=== PATIENT | female | born 1960 | race African-American/Black ===

== ENCOUNTER 2018-06-17 00:53 | Inpatient (IN) ==
[2018-06-17] MEDS ORDERED: Famotidine PF Inj 20 MG/2 ML Vial IV.PUSH ONE (01:31)
[2018-06-17] MEDS ORDERED: Ketorolac Inj 30 MG/ML (IVP) Vial IV.PUSH ONE (01:31)
[2018-06-17 01:42] LABS: Baso # (Auto) 0.1 th/mm3 (0.0-0.2); Baso % (Auto) 0.6 % (0.0-2.0); Eos # (Auto) 0.2 th/mm3 (0.0-0.4); Eos % (Auto) 2.6 % (0.0-4.0); Hemoglobin 11.6 gm/dL (11.6-15.3); Lymph # (Auto) 2.5 th/mm3 (1.0-4.8); Lymph % (Auto) 28.8 % (9.0-44.0); Mean Corpuscular HGB Conc 33.2 % (32.0-36.0); Mean Corpuscular Hemoglobin 27.1 pg (27.0-34.0); Mean Corpuscular Volume 81.8 fL (80.0-100.0); Mean Platelet Volume 9.1 fL (7.0-11.0); Mono # (Auto) 0.5 th/mm3 (0.0-0.9); Neut # (Auto) 5.4 th/mm3 (1.8-7.7); Platelet Count 255 th/mm3 (150-450); Red Blood Count 4.28 mil/mm3 (4.00-5.30); Red Cell Distribution Width 14.4 % (11.6-17.2); White Blood Count 8.7 th/mm3 (4.0-11.0)
--- NOTE | 2018-06-17 01:52 | ED ---
HPI General Chief Complaint: Asthma Stated Complaint: Difficulty breathing x 3 hrs,sharp rt side pain Time Seen by Provider: 06/17/18 01:09 History of Present Illness HPI narrative: Patient is a very obese -[place] woman who is coming in complaining of sudden onset of right sided flank to the right sided lateral abdomen pain radiating to the groin he has had dysuria hesitancy. She also feels that the pain is exacerbating her asthma. She does not appear to be in any respiratory distress she is mainly complaining of pain in her abdomen radiating towards her groin from the right flank. pt reports pain is severe and radiating , pt is visiting from [facility] and has no local MD . pt has associated nausea but no vomit , No obvious signs of Resp distress no audible wheeze and auscultation LUNG are clear Related Data Home Medications Medication Instructions Recorded Confirmed No Known Home Medications 06/17/18 06/17/18 Previous Rx's Medication Instructions Recorded cefuroxime axetil 500 mg PO Q12H #10 tab 06/18/18 ipratropium-albuterol [Combivent 2 puff INHALATION Q6H #1 inhaler 06/18/18 Respimat] Allergies Allergy/AdvReac Type Severity Reaction Status Date / Time shellfish derived Allergy Edema Verified 06/17/18 03:22 Review of Systems ROS: all other systems reviewed are negative Gastrointestinal Reports abdominal pain and Reports nausea PMFSH Medical History Medical History History of asthma (Acute) Kidney stones (Acute) Muscular pain (Acute) Peripheral edema (Acute) Sciatica (Acute) Umbilical hernia (Acute) Surgical History Surgical History History of hysterectomy (Acute) History of tubal ligation (Acute) Family History Family History Mother History of rheumatoid arthritis Father History of colon cancer Sister History of colon cancer Social History Social History Substance History: No History of Abuse Second Hand Smoke Exposure: No Smoking Status: Never smoker How Often Do You Have a Drink Containing Alcohol: Never Recent Travel in [place] within the Last 8 Weeks: No Recent Out of Country Travel within the Last 8 Weeks: No Exam Narrative Exam Narrative: GENERAL: In no apparent distress no respiratory distress holding her right side SKIN: Warm and dry. HEAD: Atraumatic. Normocephalic. EYES: Pupils equal and round. No scleral icterus. No injection or drainage. ENT: No nasal bleeding or discharge. Mucous membranes pink and moist. NECK: Trachea midline. No JVD. CARDIOVASCULAR: Regular rate and rhythm. RESPIRATORY: No accessory muscle use. Clear to auscultation. Breath sounds equal bilaterally. GASTROINTESTINAL: Abdomen soft, positive tenderness right lateral abdomen patient is obese, . Hepatic and splenic margins not palpable. MUSCULOSKELETAL: Extremities without clubbing, cyanosis, or edema. No obvious deformities. Back exam right CVA tenderness positive with radiation to the right lateral aspect of her large abdomen she is obese NEUROLOGICAL: Awake and alert. No obvious cranial nerve deficits. Motor grossly within normal limits. Five out of 5 muscle strength in the arms and legs. Normal speech. PSYCHIATRIC: Appropriate mood and affect; insight and judgment normal. Course Initial Documented Vital Signs Temperature 98.0 F 06/17/18 00:59 Pulse Rate 78 06/17/18 00:59 Respiratory Rate 20 06/17/18 00:59 Blood Pressure 143/70 H 06/17/18 00:59 Pulse Oximetry 95 06/17/18 00:59 Last Documented Vital Signs Temperature 99.1 F 06/18/18 08:00 Pulse Rate 105 H 06/18/18 08:00 Respiratory Rate 15 06/18/18 08:00 Blood Pressure 131/85 06/18/18 08:00 Pulse Oximetry 94 L 06/18/18 08:00 Medical Decision Making MDM Narrative Medical decision making narrative: CT abdomen urine UA Toradol IV re-eval patient's CAT scan shows a 5 mm stone in her right mid ureter with hydronephrosis hydroureter. She also has multiple large calcified gallstones. Patient's lipase returns at 2000. Patient is given Toradol and Pepcid from arrival and she feels much better will admit her for a urology consult as well as a GI consult possibly ERCP will be needed to remove the gallstones that may be blocking her pancreatic duct however at this time she is pain-free and feels much improved admit to medicine Medical Screen Exam Complete: Yes Emergency Medical Condition: Yes Differential Diagnosis Differential Diagnosis: Renal colic with kidney stone versus pyelonephritis due to a UTI versus pancreatitis vs SBO hydronephrosis obstructing uropathology Lab Data Result diagrams: 06/18/18 05:45 06/18/18 13:54 Lab Results 09/06/18 09/06/18 09/06/18 Range/Units 01:32 02:10 05:00 CBC w Diff Auto diff final WBC 8.7 (4.0-11.0) th/mm3 RBC 4.28 (4.00-5.30) mil/mm3 Hgb 11.6 (11.6-15.3) gm/dL Hct 35.0 (35.0-46.0) % MCV 81.8 (80.0-100.0) fL MCH 27.1 (27.0-34.0) pg MCHC 33.2 (32.0-36.0) % RDW 14.4 (11.6-17.2) % Plt Count 255 (150-450) th/mm3 MPV 9.1 (7.0-11.0) fL Neut % (Auto) 62.0 (16.0-70.0) % Lymph % (Auto) 28.8 (9.0-44.0) % [place] % (Auto) 6.0 (0.0-8.0) % Eos % (Auto) 2.6 (0.0-4.0) % Baso % (Auto) 0.6 (0.0-2.0) % Neut # (Auto) 5.4 (1.8-7.7) th/mm3 Lymph # (Auto) 2.5 (1.0-4.8) th/mm3 [place] # (Auto) 0.5 (0.0-0.9) th/mm3 Eos # (Auto) 0.2 (0.0-0.4) th/mm3 Baso # (Auto) 0.1 (0.0-0.2) th/mm3 WBC Differential . Differential Comment . Sodium 140 (136-145) meq/L Potassium 3.9 (3.5-5.1) meq/L Chloride 107 (98-107) meq/L Carbon Dioxide 24.4 (21.0-32.0) meq/L Anion Gap 9 (5-15) meq/L BUN 18 (7-18) mg/dL Creatinine 1.10 H (0.50-1.00) mg/dL Estimated GFR 51 L (>89) mL/min Random Glucose 124 H (74-106) mg/dL Calcium 8.8 (8.5-10.1) mg/dL Total Bilirubin 0.1 L (0.2-1.0) mg/dL AST 20 (15-37) U/L ALT 22 (10-53) U/L Alkaline Phosphatase 68 (45-117) U/L Total Protein 8.2 (6.4-8.2) g/dL Albumin 3.2 L (3.4-5.0) g/dL Triglycerides (42-150) mg/dL Cholesterol (120-200) mg/dL LDL Cholesterol, Calc (0-99) mg/dL HDL Cholesterol (40.0-60.0) mg/dL Cholesterol/HDL Ratio Ratio Lipase 2001 H (73-393) U/L Urine Color Yellow (Yellw/Straw) Urine Clarity Turbid H (Clear) Urine pH 7.0 (5.0-8.5) Ur Specific [place] Less/equal 1.005 (1.002-1.035) Urine Protein Trace (Neg-Trace) mg/dL Urine Glucose (UA) Negative (Negative) mg/dL Urine Ketones Negative (Negative) mg/dL Urine Occult Blood Moderate H (Negative) Urine Nitrate Positive H (Negative) Urine Bilirubin Negative (Negative) Urine Urobilinogen 0.2 (Less than 2) mg/dL Ur Leukocyte Esterase Large H (Negative) Urine RBC 15-50 H (0-3) /hpf Urine WBC Innumerable H (0-5) /hpf Urine WBC Clumps Many H (None) Ur Squamous Epith Cells 6-10 H (0-5) /hpf Urine Bacteria Many H (None) /hpf Urine Mucus Moderate H (Occasional) /lpf Micro UA Comment Culture indicated Ur Microscopic Review Microscopic reviewed 06/17/18 06/18/18 06/18/18 Range/Units 08:54 05:45 05:45 CBC w Diff Auto diff final WBC 11.2 H (4.0-11.0) th/mm3 RBC 4.04 (4.00-5.30) mil/mm3 Hgb 10.9 L (11.6-15.3) gm/dL Hct 33.8 L (35.0-46.0) % MCV 83.7 (80.0-100.0) fL MCH 26.9 L (27.0-34.0) pg MCHC 32.2 (32.0-36.0) % RDW 14.1 (11.6-17.2) % Plt Count 212 (150-450) th/mm3 MPV 8.6 (7.0-11.0) fL Neut % (Auto) 84.5 H (16.0-70.0) % Lymph % (Auto) 10.4 (9.0-44.0) % [place] % (Auto) 4.2 (0.0-8.0) % Eos % (Auto) 0.7 (0.0-4.0) % Baso % (Auto) 0.2 (0.0-2.0) % Neut # (Auto) 9.4 H (1.8-7.7) th/mm3 Lymph # (Auto) 1.2 (1.0-4.8) th/mm3 [place] # (Auto) 0.5 (0.0-0.9) th/mm3 Eos # (Auto) 0.1 (0.0-0.4) th/mm3 Baso # (Auto) 0.0 (0.0-0.2) th/mm3 WBC Differential . Differential Comment . Sodium 143 (136-145) meq/L Potassium 3.8 (3.5-5.1) meq/L Chloride 109 H (98-107) meq/L Carbon Dioxide 25.4 (21.0-32.0) meq/L Anion Gap 9 (5-15) meq/L BUN 17 (7-18) mg/dL Creatinine 1.90 H (0.50-1.00) mg/dL Estimated GFR 33 L (>89) mL/min Random Glucose 101 (74-106) mg/dL Calcium 7.9 L D (8.5-10.1) mg/dL Total Bilirubin 1.1 H (0.2-1.0) mg/dL AST 30 (15-37) U/L ALT 27 (10-53) U/L Alkaline Phosphatase 67 (45-117) U/L Total Protein 7.3 D (6.4-8.2) g/dL Albumin 2.7 L (3.4-5.0) g/dL Triglycerides 83 (42-150) mg/dL Cholesterol (120-200) mg/dL LDL Cholesterol, Calc (0-99) mg/dL HDL Cholesterol (40.0-60.0) mg/dL Cholesterol/HDL Ratio Ratio Lipase 109 (73-393) U/L Urine Color (Yellw/Straw) Urine Clarity (Clear) Urine pH (5.0-8.5) Ur Specific [place] (1.002-1.035) Urine Protein (Neg-Trace) mg/dL Urine Glucose (UA) (Negative) mg/dL Urine Ketones (Negative) mg/dL Urine Occult Blood (Negative) Urine Nitrate (Negative) Urine Bilirubin (Negative) Urine Urobilinogen (Less than 2) mg/dL Ur Leukocyte Esterase (Negative) Urine RBC (0-3) /hpf Urine WBC (0-5) /hpf Urine WBC Clumps (None) Ur Squamous Epith Cells (0-5) /hpf Urine Bacteria (None) /hpf Urine Mucus (Occasional) /lpf Micro UA Comment Ur Microscopic Review 06/18/18 06/18/18 Range/Units 05:45 13:54 CBC w Diff WBC (4.0-11.0) th/mm3 RBC (4.00-5.30) mil/mm3 Hgb (11.6-15.3) gm/dL Hct (35.0-46.0) % MCV (80.0-100.0) fL MCH (27.0-34.0) pg MCHC (32.0-36.0) % RDW (11.6-17.2) % Plt Count (150-450) th/mm3 MPV (7.0-11.0) fL Neut % (Auto) (16.0-70.0) % Lymph % (Auto) (9.0-44.0) % [place] % (Auto) (0.0-8.0) % Eos % (Auto) (0.0-4.0) % Baso % (Auto) (0.0-2.0) % Neut # (Auto) (1.8-7.7) th/mm3 Lymph # (Auto) (1.0-4.8) th/mm3 [place] # (Auto) (0.0-0.9) th/mm3 Eos # (Auto) (0.0-0.4) th/mm3 Baso # (Auto) (0.0-0.2) th/mm3 WBC Differential Differential Comment Sodium 144 (136-145) meq/L Potassium 3.4 L (3.5-5.1) meq/L Chloride 111 H (98-107) meq/L Carbon Dioxide 25.5 (21.0-32.0) meq/L Anion Gap 8 (5-15) meq/L BUN 12 (7-18) mg/dL Creatinine 1.30 H (0.50-1.00) mg/dL Estimated GFR 51 L (>89) mL/min Random Glucose 92 (74-106) mg/dL Calcium 7.9 L (8.5-10.1) mg/dL Total Bilirubin 0.7 (0.2-1.0) mg/dL AST 30 (15-37) U/L ALT 28 (10-53) U/L Alkaline Phosphatase 66 (45-117) U/L Total Protein 6.6 D (6.4-8.2) g/dL Albumin 2.4 L (3.4-5.0) g/dL Triglycerides 78 (42-150) mg/dL Cholesterol 182 (120-200) mg/dL LDL Cholesterol, Calc 108 H (0-99) mg/dL HDL Cholesterol 58.3 (40.0-60.0) mg/dL Cholesterol/HDL Ratio 3.12 Ratio Lipase (73-393) U/L Urine Color (Yellw/Straw) Urine Clarity (Clear) Urine pH (5.0-8.5) Ur Specific [place] (1.002-1.035) Urine Protein (Neg-Trace) mg/dL Urine Glucose (UA) (Negative) mg/dL Urine Ketones (Negative) mg/dL Urine Occult Blood (Negative) Urine Nitrate (Negative) Urine Bilirubin (Negative) Urine Urobilinogen (Less than 2) mg/dL Ur Leukocyte Esterase (Negative) Urine RBC (0-3) /hpf Urine WBC (0-5) /hpf Urine WBC Clumps (None) Ur Squamous Epith Cells (0-5) /hpf Urine Bacteria (None) /hpf Urine Mucus (Occasional) /lpf Micro UA Comment Ur Microscopic Review Imaging Data Radiologist's impression: Chest X-Ray 06/17/18 01:30 CONCLUSION: Cardiac silhouette size at the upper limits for normal. No acute pulmonary abnormality is appreciated. Abdomen/Pelvis CT 06/17/18 01:54 CONCLUSION: 1. There is a 5 mm stone in the right mid ureter causing right hydronephrosis and hydroureter. 2. Large staghorn-type calculus measuring approximately 6.1 cm and the left kidney which extends into the left renal pelvis. There is associated urothelial thickening and inflammation of the extrarenal pelvis. 3. There is a periumbilical hernia containing fat and a portion of the transverse colon. 4. Cholelithiasis. Discharge Plan Discharge Disposition Patient Disposition: 01 Discharge Home Discharge Condition Condition: Stable Discharge Order Discharge Orders: Discharge Order (Routine); Ordered 06/18/18 Ordered By: Chente Cavazos Discharge Details Anticipated Discharge Date: 06/18/18 Physicians Team ED Provider: Souleymane Joshi Attending Provider: Rick Cornejo Other Providers: Jose Luis White ; Abhay Andersen Ammar Status ED Status: Left Department Discharge Information Discharge Date/Time: 06/17/18 06:00
--- NOTE | 2018-06-17 02:00 | XR ---
EXAM DATE: 06/17/2018 1:55 AM EDT AGE/SEX: 58 years / Female INDICATIONS: Shortness of breath for 3 hours with right sided chest pain. CLINICAL DATA: This is the patient's initial encounter. Patient reports that signs and symptoms have been present for 1 day and indicates a pain score of 5/10. MEDICAL/SURGICAL HISTORY: . over weight. None. COMPARISON: No prior exams available for comparison. FINDINGS: AP view of the chest demonstrates cardiac silhouette size at the upper limits for normal with calcifi cation of the aorta. Patient is rotated and mildly underinflated. No definite effusion, consolidation , or pneumothorax is seen. Generalized increased density overlying the lower lung zones is felt to be related to overlying soft tissues. The bones and soft tissues demonstrate no acute abnormality. CONCLUSION: Cardiac silhouette size at the upper limits for normal. No acute pulmonary abnormality is appreciated . Electronically signed by: Ernesto Slater MD 06/17/2018 1:59 AM EDT
[2018-06-17 02:24] LABS: Chloride 107 meq/L (98-107); Potassium 3.9 meq/L (3.5-5.1); Sodium 140 meq/L (136-145)
[2018-06-17 02:28] LABS: Albumin 3.2 g/dL (3.4-5.0); Anion Gap 9 meq/L (5-15); Blood Urea Nitrogen 18 mg/dL (7-18); Calcium 8.8 mg/dL (8.5-10.1); Carbon Dioxide 24.4 meq/L (21.0-32.0); Glucose,Random 124 mg/dL (74-106)
[2018-06-17 02:31] LABS: Alanine Aminotransferase 22 U/L (10-53); Aspartate Aminotransferase 20 U/L (15-37); Glomerular Filtration Rate 51 mL/min (>89)
--- NOTE | 2018-06-17 03:22 | CT ---
EXAM DATE: 06/17/2018 2:42 AM EDT AGE/SEX: 58 years / Female INDICATIONS: Right upper quadrant and flank pain with dysuria. CLINICAL DATA: This is the patient's initial encounter. Patient reports that signs and symptoms have been present for 2 days and indicates a pain score of 7/10. MEDICAL/SURGICAL HISTORY: Renal calculi. Asthma. Umbilical hernia. None. RADIATION DOSE: 27.99 CTDI (mGy) COMPARISON: No prior exams available for comparison. TECHNIQUE: Multiple contiguous axial images were obtained through the abdomen. Images were obtained using multiple row detector helical technique. Using automated exposure control and adjustment of the mA and/or kV according to patient size, radiation dose was kept as low as reasonably achievable to o btain optimal diagnostic quality images. DICOM format image data is available electronically for rev iew and comparison. FINDINGS: Lower chest: No acute abnormality is identified. Hepatobiliary: Liver density is normal and no focal lesion is seen on this noncontrast examination. T he liver contains a punctate calcification. Gallbladder is filled with calcified stones. No inflammat ion is present. There is no bile duct dilatation. Kidneys: There is mild to moderate right hydronephrosis and hydroureter caused by 5 mm stone in the r ight mid ureter. There is a large staghorn-type calculus within the left kidney and extending into th e extrarenal pelvis measuring approximately 6.1 x 2.2 cm. It is associated with urothelial thickening of the extrarenal pelvis and surrounding inflammation. Adrenal Glands: Within normal limits. Spleen: Within normal limits. There is calcification within the spleen. Pancreas: Within normal limits. Vascular: The aorta is nonaneurysmal. There is mild atherosclerotic disease. Bowel/Mesentery: The stomach and small bowel demonstrate no abnormality. No acute colon abnormality i s seen. There is no free intraperitoneal air or fluid. Abdominal Wall: There is a periumbilical hernia which contains a portion of the transverse colon. The re are no signs of obstruction. Retroperitoneum: No lymphadenopathy. Bladder: No wall thickening or mass. Reproductive: Uterus is absent. No adnexal abnormality is seen. Inguinal: No lymphadenopathy or hernia. Musculoskeletal: No acute osseous abnormality is identified. There is facet arthrosis at L4-L5 result ing in minimal anterolisthesis. CONCLUSION: 1. There is a 5 mm stone in the right mid ureter causing right hydronephrosis and hydroureter. 2. Large staghorn-type calculus measuring approximately 6.1 cm and the left kidney which extends int o the left renal pelvis. There is associated urothelial thickening and inflammation of the extrarenal pelvis. 3. There is a periumbilical hernia containing fat and a portion of the transverse colon. 4. Cholelithiasis. Electronically signed by: Ernesto Slater MD 06/17/2018 3:20 AM EDT
[2018-06-17 04:03] LABS: Total Protein 8.2 g/dL (6.4-8.2)
[2018-06-17 04:17] LABS: Alkaline Phosphatase 68 U/L (45-117)
[2018-06-17 04:19] LABS: Lipase 2001 U/L (73-393)
[2018-06-17] MEDS ORDERED: Piperacil/Tazo 3.375 GM Premix 50 ML IV.SIG ONE (04:41)
[2018-06-17] MEDS ORDERED: Bisacodyl 10 MG Supp RECTAL PRN (04:41)
[2018-06-17] MEDS ORDERED: Morphine Inj 4 MG/ML Vial IV.PUSH PRN (04:49)
[2018-06-17] MEDS: Sod Chloride 0.9% Inj 1,000 ML IV.CONT SCH ×5 (04:52→18:29)
[2018-06-17] MEDS ORDERED: Sodium Chlor 0.9% Inj 250 ML IV.SIG SCH (05:00)
[2018-06-17 05:43] LABS: Bilirubin,Urine Negative (Negative); Clarity,Urine Turbid (Clear); Color,Urine Yellow (Yellw/Straw); Glucose,Urine (UA) Negative (Negative); Leukocyte Esterase,Urine Large (Negative); Nitrite,Urine Positive (Negative); Specific Gravity,Urine Less/Equal 1.005 (1.002-1.035); Urobilinogen,Urine 0.2 mg/dL (Less than 2)
[2018-06-17 05:45] LABS: WBC,Urine Innumerable /hpf (0-5)
[2018-06-17 05:46] LABS: Bacteria,Urine Many /hpf; Mucus,Urine Moderate /lpf (Occasional)
--- NOTE | 2018-06-17 07:39 | P.HP ---
History of Present Illness Primary Care Physician: Teresa Quezada Chief Complaint: Abdominal pain History of Present Illness: 58-year-old female with known history of back pain, kidney stones, asthma who presented the hospital because acute onset of flank/abdominal pain. Patient states that she is in her normal state of health until last night approximately 9:30 PM. Patient states that she got up to urinate and got a sudden onset of sharp stabbing pain which was 9/10 on a pain scale that started in her right flank area and radiated to her abdomen. Patient states that she started having episodes of nausea and vomiting. Because the pain did not go away she came to emergency department for evaluation. Patient indicates that over the last week she has had polyuria. Patient came to emergency department for evaluation underwent CT scan which did indicate obstructive uropathy with kidney stone causing hydroureter and hydronephrosis. Further laboratory studies indicate elevated lipase level. CT scan did not indicate any acute abnormality with the pancreas or any obstructive process through the biliary tract. Patient was subsequently admitted for further evaluation management with consult to urology and gastroenterology. Patient denies any fever, chills diarrhea, constipation, hematemesis. - Diagnosis (1) Obstructive uropathy (2) Renal lithiasis (3) Elevated lipase (4) Urinary tract infection Review of Systems All other systems reviewed negative except as stated in HPI Gastrointestinal: Reports abdominal pain, Reports nausea, Reports vomiting PMFSH - History History Provided By: Patient - Medical History Medical History: Medical History (Last Updated 06/17/18 @ 07:29 by JOEY Pickens) History of asthma Kidney stones Muscular pain Peripheral edema Sciatica Umbilical hernia - Surgical History Surgical History: Surgical History (Last Updated 06/17/18 @ 07:29 by JOEY Pickens) History of hysterectomy History of tubal ligation - Family History Family History: Family History (Last Updated 06/17/18 @ 07:30 by JOEY Pickens) Mother History of rheumatoid arthritis Father History of colon cancer Sister History of colon cancer - Tobacco History Second Hand Smoke Exposure: No Tobacco Use In Past 30 Days: No Smoking Status: Never smoker - Alcohol History How Often Do You Have a Drink Containing Alcohol: Never - Substance Use History Substance History: No History of Abuse - Travel History Recent Travel in the USA Within the Last 8 Weeks: No Recent Travel Out of the Country Within the Last 8 Weeks: No - Immunization History Tetanus Immunization: <5 Years Hx Influenza Vaccine This Season: No Medications and Allergies Active Medications: Active Medications Al Hydroxide/Mg Hydroxide (Milk Of Magnesia Liq) 30 ml PO Q12H PRN PRN Reason: Mild Constipation Bisacodyl (Dulcolax Supp) 10 mg RECTAL DAILY PRN PRN Reason: SEVERE CONSITIPATION Sodium Chloride (Ns Inj) 250 mls @ 0 mls/hr IV.SIG BOLUS ON LICENSE OF [facility] Last Infusion: 06/17/18 06:24 Dose: 250 mls/hr Sodium Chloride (Ns Inj) 1,000 mls @ 100 mls/hr IV.CONT .Q10H ON LICENSE OF [facility] Last Admin: 06/17/18 04:52 Dose: 100 mls/hr Sodium Chloride (Ns Inj) 1,000 mls @ 150 mls/hr IV.CONT .Q6H40M ON LICENSE OF [facility] Last Admin: 06/17/18 06:16 Dose: 150 mls/hr Piperacillin/Tazobactam/Dextrose (Zosyn 3.375 Gm Premix) 50 mls @ 100 mls/hr IV.SIG Q6H TAMIKO Lactulose (Lactulose Liq) 30 ml PO DAILY PRN PRN Reason: SEVERE CONSITIPATION Morphine Sulfate (Morphine Inj) 4 mg IV.PUSH Q4H PRN PRN Reason: pain 6-10 Ondansetron HCl (Zofran Inj) 4 mg IV.PUSH Q6H PRN PRN Reason: NAUSEA OR VOMITING Senna/Docusate Sodium (Bailey-Colace) 1 tab PO BID ON LICENSE OF [facility] Sennosides (Senokot) 17.2 mg PO Q12H PRN PRN Reason: Moderate Constipation Allergies Allergy/AdvReac Type Severity Reaction Status Date / Time shellfish derived Allergy Edema Verified 06/17/18 03:22 Home Medications Medication Instructions Recorded Confirmed Type No Known Home Medications 06/17/18 06/17/18 History Exam Vital signs: Vital Signs 06/17/18 00:59 06/17/18 03:30 06/17/18 04:58 Temperature 98.0 F 98.7 F Pulse Rate 78 88 Respiratory Rate 20 0 L Blood Pressure 143/70 H 104/56 L Pulse Oximetry 95 06/17/18 06:25 Temperature 98.3 F Pulse Rate 79 Respiratory Rate 20 Blood Pressure 104/59 L Pulse Oximetry Intake & Output 06/16/18 06/17/18 06/17/18 18:59 06:59 18:59 Intake Total 0 / 0 Output Total 550 / 550 Balance -550 / -550 Weight 131.6 kg Intake: IV 0 / 0 NS Inj 250 ML @ Wide Open IV. 0 / 0 SIG BOLUS TAMIKO Rx#:[id number] Oral 0 / 0 Output: Emesis 550 / 550 Other: Weight On Admission 131.6 kg Narrative: GENERAL: Well-developed, obese with BMI 53, in no acute distress. alert and orientated HEENT: Head is normocephalic without any lesions or masses noted. Facial features are symmetric. Eyes: Pupils equal round reactive to light. Extraocular muscles are intact. Conjunctivae were clear. Oropharyngeal: Pharynx without any erythema edema. Tongue is midline without deviation. Buccal mucosa is moist without any masses or lesions NECK: Supple without any masses. Trachea midline no deviation. No JVD, no bruits are appreciated CARDIAC: Regular rhythm, regular rate. S1/S2 are heard. No murmurs gallops or rubs. LUNGS: Clear to auscultation bilaterally. No wheeze, rhonchi or rales. No use of accessory muscles on inspiration or expiration. ABDOMEN: Soft, diffuse tenderness. Nondistended. Bowel sounds heard in all 4 quadrants. No organomegaly or masses. Negative rebound, negative guarding. Right CVA tenderness. No epigastric tenderness EXTREMITIES: No edema, pulses are equal bilaterally. No cyanosis or clubbing NEUROLOGY: Mood and affect appear appropriate. Cranial nerves II through XII grossly intact. Muscle strength 5/5 in upper and lower extremities bilaterally. Deep tendon reflexes are 2+ in upper and lower extremities bilaterally. Results - Labs CBC & Chem 7: 06/17/18 01:32 06/17/18 02:10 Labs: Laboratory Results - last 24 hr 06/17/18 06/17/18 06/17/18 01:32 02:10 05:00 CBC w Diff Auto diff final WBC 8.7 RBC 4.28 Hgb 11.6 Hct 35.0 MCV 81.8 MCH 27.1 MCHC 33.2 RDW 14.4 Plt Count 255 MPV 9.1 Neut % (Auto) 62.0 Lymph % (Auto) 28.8 [place] % (Auto) 6.0 Eos % (Auto) 2.6 Baso % (Auto) 0.6 Neut # (Auto) 5.4 Lymph # (Auto) 2.5 [place] # (Auto) 0.5 Eos # (Auto) 0.2 Baso # (Auto) 0.1 WBC Differential . Differential Comment . Sodium 140 Potassium 3.9 Chloride 107 Carbon Dioxide 24.4 Anion Gap 9 BUN 18 Creatinine 1.10 H Estimated GFR 51 L Random Glucose 124 H Calcium 8.8 Total Bilirubin 0.1 L AST 20 ALT 22 Alkaline Phosphatase 68 Total Protein 8.2 Albumin 3.2 L Lipase 2001 H Urine Color Yellow Urine Clarity Turbid H Urine pH 7.0 Ur Specific [place] Less/equal 1.005 Urine Protein Trace Urine Glucose (UA) Negative Urine Ketones Negative Urine Occult Blood Moderate H Urine Nitrate Positive H Urine Bilirubin Negative Urine Urobilinogen 0.2 Ur Leukocyte Esterase Large H Urine RBC 15-50 H Urine WBC Innumerable H Urine WBC Clumps Many H Ur Squamous Epith Cells 6-10 H Urine Bacteria Many H Urine Mucus Moderate H Micro UA Comment Culture indicated Ur Microscopic Review Microscopic reviewed - Imaging Impressions Chest X-Ray 06/17/18 01:30 CONCLUSION: Cardiac silhouette size at the upper limits for normal. No acute pulmonary abnormality is appreciated. Abdomen/Pelvis CT 06/17/18 01:54 CONCLUSION: 1. There is a 5 mm stone in the right mid ureter causing right hydronephrosis and hydroureter. 2. Large staghorn-type calculus measuring approximately 6.1 cm and the left kidney which extends into the left renal pelvis. There is associated urothelial thickening and inflammation of the extrarenal pelvis. 3. There is a periumbilical hernia containing fat and a portion of the transverse colon. 4. Cholelithiasis. Caprini VTE Risk Assessment Caprini VTE Risk Assessment: Moderate/High Risk (score >= 2) Caprini Risk Assessment Model: Point Value = 1 Point Value = 2 Point Value = 3 Point Value = 5 Age 41-60 Minor surgery BMI > 25 kg/m2 Swollen legs Varicose veins or History of unexplained or recurrent spontaneous Oral contraceptives or hormone replacement Sepsis (< 1 month) Serious lung disease, including pneumonia (< 1 month) Abnormal pulmonary function Acute myocardial infarction Congestive heart failure (< 1 month) History of inflammatory bowel disease Medical patient at bed rest Age 61-74 Arthroscopic surgery Major open surgery (> 45 min) Laparoscopic surgery (> 45 min) Malignancy Confined to bed (> 72 hours) Immobilizing plaster cast Central venous access Age >= 75 History of VTE Family history of VTE Factor V Leiden Prothrombin 29321H Lupus anticoagulant Anticardiolipin antibodies Elevated serum homocysteine Heparin-induced thrombocytopenia Other congenital or acquired thrombophilia Stroke (< 1 month) Elective arthroplasty Hip, pelvis, or leg fracture Acute spinal cord injury (< 1 month) Prophylaxis Regimen: Total Risk Factor Score Risk Level Prophylaxis Regimen 0-1 Low Early ambulation 2 Moderate Order ONE of the following: *Sequential Compression Device (SCD) *Heparin 5000 units SQ BID 3-4 Higher Order ONE of the following medications: *Heparin 5000 units SQ TID *Enoxaparin/Lovenox 40 mg SQ daily (WT < 150 kg, CrCl > 30 mL/min) *Enoxaparin/Lovenox 30 mg SQ daily (WT < 150 kg, CrCl > 10-29 mL/min) *Enoxaparin/Lovenox 30 mg SQ BID (WT < 150 kg, CrCl > 30 mL/min) AND/OR *Sequential Compression Device (SCD) 5 or more Highest Order ONE of the following medications: *Heparin 5000 units SQ TID (Preferred with Epidurals) *Enoxaparin/Lovenox 40 mg SQ daily (WT < 150 kg, CrCl > 30 mL/min) *Enoxaparin/Lovenox 30 mg SQ daily (WT < 150 kg, CrCl > 10-29 mL/min) *Enoxaparin/Lovenox 30 mg SQ BID (WT < 150 kg, CrCl > 30 mL/min) AND *Sequential Compression Device (SCD) Assessment and Plan - Assessment (1) Obstructive uropathy Code(s): N13.9 - Obstructive and reflux uropathy, unspecified Status: Acute (2) Renal lithiasis Code(s): N20.0 - Calculus of kidney Status: Acute (3) Elevated lipase Code(s): R74.8 - Abnormal levels of other serum enzymes Status: Acute (4) Urinary tract infection Code(s): N39.0 - Urinary tract infection, site not specified Status: Acute - Plan Obstructive uropathy -CT scan indicating mid right ureter 5 mm stone with resulting hydroureter and hydronephrosis, rather 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 -Continue IV fluids, pain control -Strain all urine -Urology consulted for recommendations Urinary tract infection -Patient currently on Zosyn -Monitor culture for appropriate antibiotics Elevated lipase -Patient has had diffuse abdominal pain with episode nausea vomiting whether this is related to pancreatitis or obstructive uropathy -CT scan does not indicate any acute abnormality related to the pancreas or biliary tract -Continue IV fluids, pain control -Patient remain n.p.o. -Continue monitor lipase level -Obtain triglyceride level -GI consulted for further recommendations DVT prevention -Sequential compression devices
[2018-06-17] MEDS: Senna/Docusate Sodium 8.6/50 MG Tablet PO SCH ×2 (09:59→22:33)
[2018-06-17] MEDS: Piperacil/Tazo 3.375 GM Premix 50 ML IV.SIG SCH ×3 (11:30→22:33)
[2018-06-17] MEDS ORDERED: Acetaminophen 325 MG Tablet PO PRN (17:50)
--- NOTE | 2018-06-17 18:01 | P.CONURO ---
History of Present Illness Service: Urology Consult date: 06/17/18 Reason for Consult: Renal stones Primary Care Provider: Teresa Quezada Family Provider: Teresa Quezada Chief Complaint: Abdominal pain History of Present Illness: 58-year-old female with known history of back pain, kidney stones, passed them 2 times, last one 1y/a, asthma who presented the hospital because acute onset of Rt flank/abdominal pain. Patient states that had episodes of nausea and vomiting. Because the pain did not go away she came to emergency department for evaluation. She underwent CT scan which did indicate obstructive uropathy on a right due to a 5-6mm proximal ureteral stone causing hydroureter and hydronephrosis. She also has a large staghorn on a left. Further laboratory studies indicate elevated lipase level. CT scan did not indicate any acute abnormality with the pancreas or any obstructive process through the biliary tract. Patient was subsequently admitted for further evaluation management. Urology consulted. Pt currently denies any f/c/n/v, no hematuria, no dysuria. Still gas right flank pain 5/10 which she is able to manage with Pain meds prn. She is still NPO. Her Cr is 1.1. WBCs are ok. has positive nitrites in urine, UC sent While I was writing this note she spiked fever 101 and had chills Review of Systems All other systems reviewed negative except as stated in HPI PMFSH - History History Provided By: Patient - Medical History Medical History: Medical History (Last Updated 06/17/18 @ 07:29 by JOEY Pickens) History of asthma Kidney stones Muscular pain Peripheral edema Sciatica Umbilical hernia - Surgical History Surgical History: Surgical History (Last Updated 06/17/18 @ 07:29 by JOEY Pickens) History of hysterectomy History of tubal ligation - Family History Family History: Family History (Last Updated 06/17/18 @ 07:30 by JOEY Pickens) Mother History of rheumatoid arthritis Father History of colon cancer Sister History of colon cancer - Tobacco History Second Hand Smoke Exposure: No Tobacco Use In Past 30 Days: No Smoking Status: Never smoker - Alcohol History How Often Do You Have a Drink Containing Alcohol: Never - Substance Use History Substance History: No History of Abuse - Travel History Recent Travel in the [place] Within the Last 8 Weeks: No Recent Travel Out of the Country Within the Last 8 Weeks: No - Immunization History Tetanus Immunization: <5 Years Hx Influenza Vaccine This Season: No Medications and Allergies Active Medications: Active Medications Al Hydroxide/Mg Hydroxide (Milk Of Magnesia Liq) 30 ml PO Q12H PRN PRN Reason: Mild Constipation Bisacodyl (Dulcolax Supp) 10 mg RECTAL DAILY PRN PRN Reason: SEVERE CONSITIPATION Sodium Chloride (Ns Inj) 250 mls @ 0 mls/hr IV.SIG [facility] Last Infusion: 06/17/18 07:40 Dose: Infused Sodium Chloride (Ns Inj) 1,000 mls @ 100 mls/hr IV.CONT .Q10H [facility] Last Admin: 06/17/18 16:35 Dose: 100 mls/hr Sodium Chloride (Ns Inj) 1,000 mls @ 150 mls/hr IV.CONT .Q6H40M [facility] Last Admin: 06/17/18 11:34 Dose: 150 mls/hr Piperacillin/Tazobactam/Dextrose (Zosyn 3.375 Gm Premix) 50 mls @ 100 mls/hr IV.SIG Q6H [facility] Last Admin: 06/17/18 16:35 Dose: 100 mls/hr Lactulose (Lactulose Liq) 30 ml PO DAILY PRN PRN Reason: SEVERE CONSITIPATION Morphine Sulfate (Morphine Inj) 4 mg IV.PUSH Q4H PRN PRN Reason: pain 6-10 Last Admin: 06/17/18 11:24 Dose: 4 mg Ondansetron HCl (Zofran Inj) 4 mg IV.PUSH Q6H PRN PRN Reason: NAUSEA OR VOMITING Last Admin: 06/17/18 12:17 Dose: 4 mg Senna/Docusate Sodium (Bailey-Colace) 1 tab PO BID [facility] Last Admin: 06/17/18 09:59 Dose: Not Given Sennosides (Senokot) 17.2 mg PO Q12H PRN PRN Reason: Moderate Constipation Allergies Allergy/AdvReac Type Severity Reaction Status Date / Time shellfish derived Allergy Edema Verified 06/17/18 03:22 Home Medications Medication Instructions Recorded Confirmed Type No Known Home Medications 06/17/18 06/17/18 History Physical Exam Vital Signs - 24 hr 06/17/18 00:59 06/17/18 03:30 06/17/18 04:58 Temperature 98.0 F 98.7 F Pulse Rate 78 88 Respiratory Rate 20 0 L Blood Pressure 143/70 H 104/56 L Pulse Oximetry 95 06/17/18 06:25 06/17/18 08:22 06/17/18 12:27 Temperature 98.3 F 99.8 F H 99.5 F Pulse Rate 79 93 H 100 H Respiratory Rate 20 18 18 Blood Pressure 104/59 L 129/66 117/68 Pulse Oximetry 95 95 06/17/18 17:17 Temperature 99.4 F Pulse Rate 93 H Respiratory Rate 18 Blood Pressure 128/70 Pulse Oximetry 93 L Physical Exam: GENERAL: This is a well-nourished, well-developed patient, in no apparent distress. Obese SKIN: No rashes, ecchymoses or lesions. Cool and dry. HEAD: Atraumatic. Normocephalic. CARDIOVASCULAR: Regular rate and rhythm without murmurs, gallops, or rubs. RESPIRATORY: Clear to auscultation. Breath sounds equal bilaterally. No wheezes , rales, or rhonchi. GASTROINTESTINAL: Abdomen soft, non-tender, nondistended GENITOURINARY: + Rt mild CVAT NEUROLOGICAL: Awake and alert. Laboratory Results - last 24 hr 06/17/18 06/17/18 06/17/18 01:32 02:10 05:00 CBC w Diff Auto diff final WBC 8.7 RBC 4.28 Hgb 11.6 Hct 35.0 MCV 81.8 MCH 27.1 MCHC 33.2 RDW 14.4 Plt Count 255 MPV 9.1 Neut % (Auto) 62.0 Lymph % (Auto) 28.8 [place] % (Auto) 6.0 Eos % (Auto) 2.6 Baso % (Auto) 0.6 Neut # (Auto) 5.4 Lymph # (Auto) 2.5 [place] # (Auto) 0.5 Eos # (Auto) 0.2 Baso # (Auto) 0.1 WBC Differential . Differential Comment . Sodium 140 Potassium 3.9 Chloride 107 Carbon Dioxide 24.4 Anion Gap 9 BUN 18 Creatinine 1.10 H Estimated GFR 51 L Random Glucose 124 H Calcium 8.8 Total Bilirubin 0.1 L AST 20 ALT 22 Alkaline Phosphatase 68 Total Protein 8.2 Albumin 3.2 L Triglycerides Lipase 2001 H Urine Color Yellow Urine Clarity Turbid H Urine pH 7.0 Ur Specific [place] Less/equal 1.005 Urine Protein Trace Urine Glucose (UA) Negative Urine Ketones Negative Urine Occult Blood Moderate H Urine Nitrate Positive H Urine Bilirubin Negative Urine Urobilinogen 0.2 Ur Leukocyte Esterase Large H Urine RBC 15-50 H Urine WBC Innumerable H Urine WBC Clumps Many H Ur Squamous Epith Cells 6-10 H Urine Bacteria Many H Urine Mucus Moderate H Micro UA Comment Culture indicated Ur Microscopic Review Microscopic reviewed 06/17/18 08:54 CBC w Diff WBC RBC Hgb Hct MCV MCH MCHC RDW Plt Count MPV Neut % (Auto) Lymph % (Auto) [place] % (Auto) Eos % (Auto) Baso % (Auto) Neut # (Auto) Lymph # (Auto) [place] # (Auto) Eos # (Auto) Baso # (Auto) WBC Differential Differential Comment Sodium Potassium Chloride Carbon Dioxide Anion Gap BUN Creatinine Estimated GFR Random Glucose Calcium Total Bilirubin AST ALT Alkaline Phosphatase Total Protein Albumin Triglycerides 83 Lipase Urine Color Urine Clarity Urine pH Ur Specific [place] Urine Protein Urine Glucose (UA) Urine Ketones Urine Occult Blood Urine Nitrate Urine Bilirubin Urine Urobilinogen Ur Leukocyte Esterase Urine RBC Urine WBC Urine WBC Clumps Ur Squamous Epith Cells Urine Bacteria Urine Mucus Micro UA Comment Ur Microscopic Review Result Diagrams: 06/17/18 01:32 06/17/18 02:10 Imaging: ITS Impressions Chest X-Ray 06/17/18 01:30 CONCLUSION: Cardiac silhouette size at the upper limits for normal. No acute pulmonary abnormality is appreciated. Abdomen/Pelvis CT 06/17/18 01:54 CONCLUSION: 1. There is a 5 mm stone in the right mid ureter causing right hydronephrosis and hydroureter. 2. Large staghorn-type calculus measuring approximately 6.1 cm and the left kidney which extends into the left renal pelvis. There is associated urothelial thickening and inflammation of the extrarenal pelvis. 3. There is a periumbilical hernia containing fat and a portion of the transverse colon. 4. Cholelithiasis. Assessment and Plan - Plan 58y.o F with 5-6mm Rt obstructing Ureteral stone and left staghorn calculi She is currently comfortable, Still has pain on at right flank but its not as strong as on admission She lives in [place] and has tickets to fly back on Thursday. Discussed with pt observation vs stent placement she prefers observation - No acute intervention needed - Continue management as per primary team. NPO can be d/c and she can eat from stand point - IV fluids, pain meds, Its better to control pain with Toradol IV prn. Tylenol for fever prn - Continue antbx. Follow up on final UC - Start Flomax 0.4 mg daily - Strain urine - Observe overnight, if remains stable she can be d/c with Toradol PO 10mg q6h x 5days and PO antbx based on C&S, and Flomax Needs to drink plenty of water She will also need a strainer to catch a stone. If continues to feel comfortable can fly back to [place] on Thursday If continues to have pain and fever keep her NPO for possible stent placement tomorrow She will also need an evaluation for left staghorn and further management as an outpt either here or [place] Discussed Condition With: Dr Ganesh HART attending and primary team
--- NOTE | 2018-06-17 23:05 | MB ---
cc: Maggie Bose MD DATE: 06/17/2018 REASON FOR REFERRAL: Pancreatitis. Thank you for the consultation. HISTORY OF PRESENT ILLNESS: A 58-year-old lady with multiple medical problems including asthma, hypertension, kidney stones, came with significant abdominal pain in the right upper quadrant and flank and found to have severe elevation of her lipase consistent with pancreatitis. On admission, her pain was severe, 9/10, radiating to the back. Currently, her pain has subsided significantly where it is an 8. No other complaints at this point. CT scan showed kidney stones. No significant pancreatitis on CT scan. She also has obstructive hydronephrosis. PAST MEDICAL HISTORY: Significant for asthma, peripheral edema, umbilical hernia, kidney stones, hysterectomy, tubal ligation. FAMILY HISTORY: Significant for colon cancer, rheumatoid arthritis. SOCIAL HISTORY: Negative for tobacco, drugs or alcohol. MEDICATIONS: Reviewed in the chart. ALLERGIES: SHELLFISH. REVIEW OF SYSTEMS: All 12 points negative except for HPI. PHYSICAL EXAMINATION: GENERAL: Alert, oriented, in no acute distress. VITAL SIGNS: Stable. HEENT: Pupils round and reactive to light. NECK: Supple. CHEST: Clear to auscultation and percussion. CARDIAC: Regular rate and rhythm. No murmur or gallop. ABDOMEN: Obese. Mild tenderness in the right upper quadrant. Positive bowel sounds. EXTREMITIES: No edema, clubbing or cyanosis. NEUROLOGIC: Alert and oriented. No acute distress and no focal abnormalities. PSYCHOLOGIC: Appropriate. SKIN: Dry. No jaundice. LABORATORY DATA: Normal CBC with white count 8.7, hemoglobin 11.6. Chemistry normal. Liver function tests, total bilirubin 0.1. Lipase 2000. BUN 18, creatinine 1.10. CT scan did not show any abnormality of the pancreas at this point, a 0.5 mm stone in the mid ureter causing right hydronephrosis and a large staghorn calculus of the left kidney, ventral hernia containing fat and transverse colon, cholelithiasis. ASSESSMENT AND PLAN: A 58-year-old lady with pancreatitis, most likely biliary pancreatitis. Liver function tests are normal. No biliary dilatation. The patient also may have a fatty liver and also may have biliary pancreatitis. We will order a lipid profile. We will repeat the lipase tomorrow. She is doing better, so we will continue with the current management with pain. Further plan depends on how she is doing. I do not think the patient needs to have an ERCP at this point. She may benefit from a laparoscopic cholecystectomy at some point. She was advised to avoid fatty foods and lose weight. MD ANA Alarcon/mike , 10:18 PM , 10:31 PM
[2018-06-18] MEDS: Sod Chloride 0.9% Inj 1,000 ML IV.CONT SCH ×5 (04:20→14:13)
[2018-06-18] MEDS: Piperacil/Tazo 3.375 GM Premix 50 ML IV.SIG SCH (05:50)
[2018-06-18 06:35] LABS: Baso % (Auto) 0.2 % (0.0-2.0); Chloride 109 meq/L (98-107); Eos # (Auto) 0.1 th/mm3 (0.0-0.4); Eos % (Auto) 0.7 % (0.0-4.0); Hematocrit 33.8 % (35.0-46.0); Hemoglobin 10.9 gm/dL (11.6-15.3); Lymph # (Auto) 1.2 th/mm3 (1.0-4.8); Lymph % (Auto) 10.4 % (9.0-44.0); Mean Corpuscular HGB Conc 32.2 % (32.0-36.0); Mean Corpuscular Hemoglobin 26.9 pg (27.0-34.0); Mean Corpuscular Volume 83.7 fL (80.0-100.0); Mean Platelet Volume 8.6 fL (7.0-11.0); Mono # (Auto) 0.5 th/mm3 (0.0-0.9); Mono % (Auto) 4.2 % (0.0-8.0); Neut # (Auto) 9.4 th/mm3 (1.8-7.7); Neut % (Auto) 84.5 % (16.0-70.0); Platelet Count 212 th/mm3 (150-450); Potassium 3.8 meq/L (3.5-5.1); Red Blood Count 4.04 mil/mm3 (4.00-5.30); Red Cell Distribution Width 14.1 % (11.6-17.2); Sodium 143 meq/L (136-145); White Blood Count 11.2 th/mm3 (4.0-11.0)
[2018-06-18 07:21] LABS: Alanine Aminotransferase 27 U/L (10-53); Albumin 2.7 g/dL (3.4-5.0); Alkaline Phosphatase 67 U/L (45-117); Anion Gap 9 meq/L (5-15); Aspartate Aminotransferase 30 U/L (15-37); Blood Urea Nitrogen 17 mg/dL (7-18); Calcium 7.9 mg/dL (8.5-10.1); Carbon Dioxide 25.4 meq/L (21.0-32.0); Glomerular Filtration Rate 33 mL/min (>89); Glucose,Random 101 mg/dL (74-106); Lipase 109 U/L (73-393); Total Protein 7.3 g/dL (6.4-8.2)
[2018-06-18] MEDS: Senna/Docusate Sodium 8.6/50 MG Tablet PO SCH (08:53)
[2018-06-18 10:35] VITALS: BP 131/85; PULSE 105; RESP 15; TEMP 99.1; O2SAT 94
--- NOTE | 2018-06-18 11:05 | P.PN ---
Subjective Interval history: 58-year-old female who is seen and examined in follow-up today for renal lithiasis, pancreatitis. Patient states that she is doing much better. She is no longer in any more pain. Patient has not required any pain medication in 24 hours. Vital signs are stable. Patient did have low-grade fever last evening approximately 8 PM. Patient indicated that she did find a urinary stone in the strainer today. Physical Exam Vital signs: Vital Signs 06/17/18 12:27 06/17/18 17:17 06/17/18 18:05 Temperature 99.5 F 99.4 F 101.6 F H Pulse Rate 100 H 93 H 115 H Respiratory Rate 18 18 22 Blood Pressure 117/68 128/70 171/72 H Pulse Oximetry 95 93 L 94 L 06/17/18 18:32 06/17/18 20:00 06/18/18 00:00 Temperature 101.4 F H 100.8 F H 99 F Pulse Rate 114 H 95 H Respiratory Rate 18 20 Blood Pressure 122/66 130/58 L 109/51 L Pulse Oximetry 94 L 93 L 06/18/18 08:00 Temperature 99.1 F Pulse Rate 105 H Respiratory Rate 15 Blood Pressure 131/85 Pulse Oximetry 94 L Intake & Output 06/17/18 06/18/18 06/18/18 18:59 06:59 18:59 Intake Total 3400 / 3400 2100 / 2100 1000 / 1000 Output Total 200 / 200 Balance 3200 / 3200 2100 / 2100 1000 / 1000 Weight 134.8 kg Intake: IV 3400 / 3400 2100 / 2100 1000 / 1000 NS Inj 1,000 ML @ 150 mls/hr IV 3000 / 3000 2000 / 2000 1000 / 1000 .CONT .Q6H40M TAMIKO Rx#: [id number] Zosyn 3.375 GM Premix 50 ML @ 150 / 150 100 / 100 100 mls/hr IV.SIG Q6H TAMIKO Rx#: [id number] NS Inj 250 ML @ Wide Open IV. 250 / 250 SIG BOLUS TAMIKO Rx#:[id number] Oral 0 / 0 0 / 0 Output: Emesis 200 / 200 Other: # Voids 3 1 Date of Last Bowel Movement 06/16/18 06/16/18 06/16/18 Narrative: GENERAL: Well-developed, well-nourished, in no acute distress. alert and orientated HEENT: Head is normocephalic without any lesions or masses noted. Facial features are symmetric. Eyes: Extraocular muscles are intact. Conjunctivae were clear. NECK: Supple without any masses. Trachea midline no deviation. No JVD, CARDIAC: Regular rhythm, regular rate. S1/S2 are heard. No murmurs gallops or rubs. LUNGS: Clear to auscultation bilaterally. No wheeze, rhonchi or rales. No use of accessory muscles on inspiration or expiration. ABDOMEN: Soft, nontender. Nondistended. Bowel sounds heard in all 4 quadrants. No organomegaly or masses. Negative rebound, negative guarding EXTREMITIES: No edema, pulses are equal bilaterally. No cyanosis or clubbing NEUROLOGY: Mood and affect appear appropriate. Cranial nerves II through XII grossly intact. Moving all extremities, speech is clear Results - Labs CBC & Chem 7: 06/18/18 05:45 06/18/18 13:54 Laboratory Results - last 24 hr 06/17/18 06/18/18 06/18/18 08:54 05:45 05:45 CBC w Diff Auto diff final WBC 11.2 H RBC 4.04 Hgb 10.9 L Hct 33.8 L MCV 83.7 MCH 26.9 L MCHC 32.2 RDW 14.1 Plt Count 212 MPV 8.6 Neut % (Auto) 84.5 H Lymph % (Auto) 10.4 [place] % (Auto) 4.2 Eos % (Auto) 0.7 Baso % (Auto) 0.2 Neut # (Auto) 9.4 H Lymph # (Auto) 1.2 [place] # (Auto) 0.5 Eos # (Auto) 0.1 Baso # (Auto) 0.0 WBC Differential . Differential Comment . Sodium 143 Potassium 3.8 Chloride 109 H Carbon Dioxide 25.4 Anion Gap 9 BUN 17 Creatinine 1.90 H Estimated GFR 33 L Random Glucose 101 Calcium 7.9 L D Total Bilirubin 1.1 H AST 30 ALT 27 Alkaline Phosphatase 67 Total Protein 7.3 D Albumin 2.7 L Triglycerides 83 Lipase 109 Assessment and Plan - Assessment (1) Obstructive uropathy Code(s): N13.9 - Obstructive and reflux uropathy, unspecified Status: Acute (2) Renal lithiasis Code(s): N20.0 - Calculus of kidney Status: Acute (3) Elevated lipase Code(s): R74.8 - Abnormal levels of other serum enzymes Status: Acute (4) Urinary tract infection Code(s): N39.0 - Urinary tract infection, site not specified Status: Acute - Plan Obstructive uropathy -CT scan indicating mid right ureter 5 mm stone with resulting hydroureter and hydronephrosis, rather 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 -Continue IV fluids, pain control -Strain all urine -Continue Flomax -Urology consulted for recommendations, who recommended starting Flomax, observe overnight and if remains stable may be able to discharge home on Toradol p.o. Urinary tract infection -Continue on Zosyn -Monitor culture for appropriate antibiotics Acute kidney injury, improved -Could be related to obstructive uropathy -Continue IV fluids -Monitor BMP Elevated lipase, resolved -Patient has had diffuse abdominal pain with episode nausea vomiting whether this is related to pancreatitis or obstructive uropathy -CT scan does not indicate any acute abnormality related to the pancreas or biliary tract -Continue IV fluids, pain control -Advance diet as tolerated -Continue monitor lipase level, has returned to normal -Triglycerides 83 -GI consulted for further recommendations, recommended MRCP, however unable to perform test here in [place]. It was discussed with wet finisher that patient is clinically stable at this time. Lipase has returned to normal. Patient tolerating diet. Special Delivery Worker indicated patient can be discharged home with outpatient follow-up DVT prevention -Sequential compression devices Discharge Planning: Discharge home in stable condition Activity: Ad thao. Diet: Regular diet Medication per medication reconciliation Follow-up with primary medical doctor in 1 week
[2018-06-18] MEDS ORDERED: Piperacil/Tazo 2.25 GM Premix 50 ML IV.SIG SCH (12:00)
[2018-06-18 14:04] LABS: Chol/HDL Ratio 3.12 Ratio; HDL Cholesterol 58.3 mg/dL (40.0-60.0)
[2018-06-18 14:10] LABS: Chloride 111 meq/L (98-107); Potassium 3.4 meq/L (3.5-5.1); Sodium 144 meq/L (136-145)
[2018-06-18 14:13] LABS: Calcium 7.9 mg/dL (8.5-10.1)
[2018-06-18 14:14] LABS: Albumin 2.4 g/dL (3.4-5.0); Anion Gap 8 meq/L (5-15); Blood Urea Nitrogen 12 mg/dL (7-18); Carbon Dioxide 25.5 meq/L (21.0-32.0); Glucose,Random 92 mg/dL (74-106)
[2018-06-18 14:17] LABS: Alanine Aminotransferase 28 U/L (10-53); Aspartate Aminotransferase 30 U/L (15-37); Glomerular Filtration Rate 51 mL/min (>89)
[2018-06-18 14:18] LABS: Total Protein 6.6 g/dL (6.4-8.2)
[2018-06-18 14:20] LABS: Alkaline Phosphatase 66 U/L (45-117)
--- NOTE | 2018-06-18 18:56 | MB ---
cc: Maggie Bose MD DATE: 06/18/2018 SUBJECTIVE: The patient is sitting in a chair comfortably. No abdominal pain. Tolerated food today. OBJECTIVE: VITAL SIGNS: Stable. No fever or chills. HEENT: Pupils are round and reactive to light. NECK: Supple. CHEST: Clear to auscultation and percussion. CARDIAC: Regular rate and rhythm. ABDOMEN: Obese. Positive bowel sounds. No hepatosplenomegaly. No pain. EXTREMITIES: No edema, clubbing or cyanosis. LABORATORY DATA: Reviewed earlier and showed that her liver function tests are improving. ASSESSMENT AND PLAN: A 58-year-old lady with pancreatitis, could be gallstone. She is doing better and tolerating food. Primary team is sending her home. She can follow up with GI as an outpatient. Further plan depends on how she is doing as an outpatient. MD ANA Alarcon/mike , 05:18 PM , 05:25 PM
== END 2018-06-18 18:24 | disposition home or self-care (01) ==
LOC: PHED 00:53 → PHEDA 00:53 → PH3 06:00
PROVIDERS: ADMIT Hospitalist; ATTEND Hospitalist